=== PATIENT | female | born 2000 | race Caucasian/White ===

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

== ENCOUNTER 2022-05-19 17:26 | Observation (INO) | payer BC, MEDICAID, SELFPAY ==
[2022-05-19] VITALS (30 sets, daily range): BP systolic 81–110; BP diastolic 50–95; PULSE 66–110; RESP 8–18; TEMP 36.8; O2SAT 98–100
--- NOTE | ~2022-05-19 | CT_ITS ---
EXAMINATION: CT abdomen pelvis w con DATE: 05/19/2022 22:45 INDICATION: abdominal pain TECHNIQUE: Computed tomography (CT) of the abdomen and pelvis was performed with 100 mL Omnipaque-350 intravenous contrast. Automated exposure control and iterative reconstruction technique were employe d. The dose-length product was 207.57 mGy-cm. COMPARISON: None. FINDINGS: Lower thorax: Unremarkable Liver: Normal. Biliary/Gallbladder: Gallbladder is normal. No bile duct dilation. Pancreas: No mass or duct dilation. Mildly atrophic. Spleen: Normal. Adrenals:No mass. Kidneys: No mass, stone, or hydronephrosis. GI tract: No small or large bowel dilation. The appendix is not confidently visualized. Mesentery/Peritoneum: No ascites, mass, or free air. Retroperitoneum: No mass. Generalized mesenteric edema, slight predominance in the right lower quadra nt. Pelvis: Otherwise the pelvic organs are within normal limits. Soft Tissues: Soft tissues and body wall unremarkable. Bones: No acute osseous finding. Bilateral pars defects at L4. IMPRESSION: 1. Generalized mesenteric edema, which is considered a nonspecific finding. However, there is slightl y greater stranding in the right lower quadrant. 2. The appendix was not visualized due to the paucity of intra-abdominal fat and adjacent loops of luis m wel. Better visualization would require intraluminal contrast and sufficient delay. 3. Bilateral inguinal lymphadenopathy. Reviewed, dictated and finalized at location K. S RIBBON MACHINE OPERATOR ASSISTANT IMPRESSION: 1. Generalized mesenteric edema, which is considered a nonspecific finding. How ever, there is slightly greater stranding in the right lower quadrant. 2. The appendix was not visualized due to the paucity of intra-abdominal fat an d adjacent loops of bowel. Better visualization would require intraluminal cont rast and sufficient delay. 3. Bilateral inguinal lymphadenopathy.
--- NOTE | ~2022-05-19 | XR_ITS ---
EXAMINATION: XR chest 2V Exam Date/Time: 05/19/2022 21:50 LIFT SUPERVISOR HISTORY: overdose Comparison: None available. RESULT: Lines, tubes, and devices: None. Lungs and pleura: Clear. Cardiomediastinal silhouette: Normal. Other: No acute osseous or upper abdominal finding. IMPRESSION: No acute cardiopulmonary process. Reviewed, dictated and finalized at location K. SUPERVISOR
[2022-05-19 17:38] LABS: Glucose Point of Care 225 mg/dl (65-105)
--- NOTE | 2022-05-19 17:38 | ECG_ITS ---
Measurements Intervals [place] Rate: 102 P: 12 TN: 134 QRS: 88 QRSD: 86 T: 40 QT: 346 QTc: 451 Interpretive Statements SINUS TACHYCARDIA WITH OCCASIONAL VENTRICULAR PREMATURE COMPLEXES ABNORMAL RHYTHM ECG NO PREVIOUS ECG AVAILABLE FOR COMPARISON Electronically Signed On 05-20-2022 16:17:06 VAULT PERSON by Candelaria Chirinos M.D.
[2022-05-19 18:54] LABS: Hematocrit 33.6 % (37.0-47.0); Hemoglobin 11.1 g/dL (12.0-15.0); Mean Corpuscular Hemoglobin 27.9 pg (26-34); Mean Corpuscular Volume 84.4 fl (80-100); Mean Platelet Volume 10.8 fl (7.4-10.4); Platelet Count Result 313 k/mm3 (150-375); Red Blood Count 3.98 M/mm3 (4.2-5.4); Red Cell Distribution Width 13.8 % (11.5-14.5); White Blood Count 35.6 K/mm3 (4.5-10.0)
[2022-05-19 19:12] LABS: Hemoglobin A1C 5.3 % (<5.7)
[2022-05-19 19:19] LABS: Acetaminophen < 10 ug/mL (10-30); Ethanol < 10 mg/dL (<10); Salicylate < 1.0 mg/dL (2-20)
[2022-05-19 19:29] LABS: SARS-CoV-2 RNA PCR Negative
[2022-05-19 19:44] LABS: Band Neutrophils Percent 10 % (0-6); Eosinophils Absolute Manual 0.35 K/mm3 (0.02-0.5); Eosinophils Percent Manual 1 % (0-4); Lymphocytes Absolute Manual 1.06 K/mm3 (1.1-4.5); Monocytes Absolute Manual 1.78 K/mm3 (0.1-0.90); Monocytes Percent Manual 5 % (3-9); Neutrophils Absolute Manual 32.39 K/mm3 (1.7-7.2); Neutrophils Percent Manual 81 % (46-73); Schistocytes None Seen (NORMAL); Total Cells Counted 100
[2022-05-19 19:45] LABS: Platelet Estimate Adequate (Adequate)
[2022-05-19 20:14] LABS: Appearance Urine Slightly Cloudy (Clear); Bilirubin Urine Negative (Negative); Blood Urine 3+ (Negative); Color Urine Yellow (Yellow); Glucose Urine UA Trace mg/dL (Negative); Ketones Urine Negative (Negative); Leukocyte Esterase Ur 2+ LEU/UL (Negative); Nitrate Urine Positive (Negative); Protein Urine 1+ mg/dL (Negative); Specific Grav Ur 1.025 (1.001-1.035); Urobilinogen Urine 0.2 mg/dL (<2.0)
[2022-05-19 20:20] LABS: Add Urine Microscopic? YES; Bacteria Urine 2+ /hpf; Mucus Urine Rare /lpf; Squamous Epithelial Cell Urine Many /hpf (Few); WBC Urine 21-30 /hpf
[2022-05-19 20:26] LABS: Barbiturate Screen Urine Negative (Negative); Benzodiazepines Screen Urine Negative (Negative)
[2022-05-19 20:27] LABS: Alanine Aminotransferase 32 U/L (6-35); Alkaline Phosphatase 60 U/L (45-116); Anion Gap 5 mmol/L (8-16); Aspartate Amino Transferase 50 U/L (14-36); Bilirubin,Total 0.4 mg/dL (0.2-1.3); Blood Urea Nitrogen 17 mg/dL (8-21); Carbon Dioxide 27 mmol/L (22-30); Chloride 104 mmol/L (98-107); Estimated CRCL calculation 114 ml/min; Estimated Glomerular Filt Rate > 60; Glucose 76 mg/dL (65-110); Potassium 4.6 mmol/L (3.4-5.0); Sodium 136 mmol/L (134-143)
[2022-05-19 20:45] LABS: Cannabinoid Screen Urine Negative (Negative); Cocaine Screen Urine Negative (Negative); Methadone Screen Urine Negative (Negative); Opiate Screen Urine Negative (Negative); Phencyclidine Screen Urine Negative (Negative)
[2022-05-19 21:10] LABS: Amphetamine Screen Urine Positive (Negative)
--- NOTE | 2022-05-19 21:44 | ED.OVERDOSE ---
HPI - Overdose General Chief Complaint: Overdose Stated Complaint: Overdose Time Seen by Provider: 05/19/22 17:51 History of Present Illness HPI Narrative: Patient is a 21-year-old female who presents ER status post overdose. Patient reports accidental overdose. She received 2 mg of Narcan from paramedics and additional Narcan from EMS. She reports she usually uses methamphetamine and she may have accidentally used an opiate however she told the nurses that she used fentanyl. Patient has no complaints of being nauseous at this time. Related Data Home Medications Medication Instructions Recorded Confirmed No Home Medications 03/08/21 03/08/21 Allergies Allergy/AdvReac Type Severity Reaction Status Date / Time No Known Allergies Allergy Verified 05/19/22 17:37 Review of Systems Review of Systems: All systems reviewed & are unremarkable except as noted in HPI and below Constitutional: Constitutional: Denies chills, Reports fatigue and Denies fever(s) ENT: Denies nasal congestion and Denies sore throat Cardiovascular: Cardiovascular: Denies chest pain, Denies rapid heart rate and Denies radiating jaw, neck or arm pain Respiratory: Respiratory: Denies cough and Denies dyspnea Gastrointestinal: Gastrointestinal: Denies abdominal pain, Denies diarrhea and Reports nausea Neurologic: Denies headache(s), Denies focal weakness and Denies numbness PMFSH Past Medical History Medical History (Updated 05/19/22 @ 23:53 by Papo Kenyon MD) Healthy female adult Surgical History Surgical History (Updated 05/19/22 @ 21:45 by Papo Kenyon MD) No history of previous surgery Social History Social History (Updated 05/19/22 @ 21:46 by Papo Kenyon MD) Smoking status: Current every day smoker Tobacco type: cigarettes and e-cigarettes/vaping Alcohol intake: current Alcohol use details: sometimes Substance use: current Substance use type: marijuana, amphetamines and opiates Gender identity (if verbalized by the patient): Female Exam Narrative: GENERAL: Well-appearing, well-nourished, and in no acute distress. HEAD: Normocephalic, atraumatic. EYES: PERRL and EOMI. ENT: Mucous membranes moist. CHEST: Clear to auscultation. No respiratory distress. HEART: Regular rate and rhythm. Normal peripheral pulses. ABDOMEN: Soft, nontender, nondistended. EXTREMITIES: Normal range of motion. No edema. SKIN: Warm, dry, no rash. NEURO: Alert and oriented x3. PSYCH: Normal mood and affect. Course Course Emergency Course: Patient given small dose of Narcan here which improved respiratory rate from 9-16 and then increased blood pressure from the 80s to 90s. Patient then had all her blood pressure cuff put on and her blood pressure went up to 110/82 mmHg. Patient is keenly arousable to verbal stimuli. Admit for observation IV antibiotics. Patient could have aspiration the rhinitis seen on x-ray. Vital Signs Vital signs: Vital Signs Temperature 98.2 F 05/19/22 17:30 Pulse Rate 110 H 05/19/22 17:30 Respiratory Rate 18 05/19/22 17:30 Blood Pressure 110/95 H 05/19/22 17:30 Pulse Oximetry 100 05/19/22 17:30 Temperature 98.2 F 05/19/22 17:30 Pulse Rate 82 05/19/22 23:49 Respiratory Rate 10 L 05/19/22 23:49 Blood Pressure 110/82 05/19/22 23:49 Pulse Oximetry 100 05/19/22 23:49 MDM - Overdose Lab Data 05/19/22 18:09 05/19/22 19:58 Labs: Lab Results 05/19/22 05/19/22 05/19/22 Range/Units 17:35 18:09 18:09 WBC 35.6 H (4.5-10.0) K/mm3 RBC 3.98 L (4.2-5.4) M/mm3 Hgb 11.1 L (12.0-15.0) g/dL Hct 33.6 L (37.0-47.0) % MCV 84.4 (80-100) fl MCH 27.9 (26-34) pg MCHC 33.0 (32-36) g/dl RDW 13.8 (11.5-14.5) % Plt Count 313 (150-375) k/mm3 MPV 10.8 H (7.4-10.4) fl Immature Gran % (Auto) Not Reportable Neut % (Auto) Not Reportable Lymph % (Auto) Not Reportable
[2022-05-19 22:21] LABS: Lactic Acid Reflex 0.8 mmol/L (0.7-2.0)
[2022-05-19] MEDS: SODIUM CHLORIDE 0.9% IV 1,000 ML 999 ML IV CONT ×2 (22:46)
[2022-05-19] MEDS: NALOXONE HCL 0.4 MG/ML VIAL IV PUSH (23:35)
--- NOTE | 2022-05-19 23:39 | PM.IMHP ---
H&P: HPI History of Present Illness Date/Time: 05/19/22 23:39 Chief Complaint: Unresponsive Narrative: 21-year-old female with past medical history of cutting, depression and substance abuse who presented to the ER via EMS after she was found unresponsive at her best friend's house. The patient reports that she has frequently and routinely smoked methamphetamines since she was 18. She is estranged from her family due to these behavior. Today she evidently got some drugs that it contained fentanyl. According to ER report the patient received 2 mg of Narcan with a repeat dose of additional Narcan of unknown amount in the field. She has subsequently received reportedly 2 additional doses Narcan in the ER 0.4. Although 1 doses only documented. The patient wakes up easily and answers all questions. All lower respiratory rate does drop as low as 9 deep less on the monitor is not accurate and on exam patient was actually breathing 12-14 times a minute. She denies any shortness of breath, cough or congestion. She reports that she was at her best friend's house and was smoking meth in order to get high. Next thing she knew EMS was called. She denies any nausea or vomiting. She has irritable and repetitively has asking for food. She reports she has some lower abdominal pain which she thinks is associated with her menstrual cycle. She is actively was menses. He denies any urinary symptoms. She has been afebrile in the ER. She has not had any hypoxia. When she arrived to the ER the patient's blood pressures were borderline low. She received 2 L in fluid bolus. Her blood pressures were still soft. However the time my evaluation it was noted the patient had a regular-sized adult cuff on an with changed to a small adult cuff the patient's blood pressures were more appropriate. Review of Systems Review of Systems: 12 systems were reviewed with pertinent positives and negatives per HPI. Except as documented in the HPI, all other systems were reviewed and are negative. [facility] Past Medical History Medical History (Updated 05/20/22 @ 02:52 by Christina Troncoso DO) Deliberate self-cutting Homeless single person Methamphetamine abuse Previous known suicide attempt Surgical History Surgical History No history of previous surgery Family History Family History Other No significant family history Social History Social History (Updated 05/20/22 @ 02:37 by Christina Troncoso DO) Social History: She is single. She has homeless but occasionally stays with her boyfriend and or best friend. She smokes a pack of cigarettes a week since she was 18. She has been smoking methamphetamines since she was 18. She denies any significant alcohol use. Code status: Full code Smoking status: Current every day smoker Tobacco type: cigarettes and e-cigarettes/vaping Alcohol intake: current Alcohol use details: sometimes Substance use: current Substance use type: marijuana, amphetamines and opiates Gender identity (if verbalized by the patient): Female Meds Home Medications and Allergies Home Medications Medication Instructions Recorded Confirmed Type No Home Medications 03/08/21 03/08/21 History Allergies Allergy/AdvReac Type Severity Reaction Status Date / Time amoxicillin Allergy Mild Rash Verified 05/20/22 02:40 Vital Signs Vital Signs - 24 hr 05/19/22 17:30 05/19/22 17:35 05/19/22 18:13 Temperature 98.2 F Pulse Rate 110 H 89 Respiratory Rate 18 18 Blood Pressure 110/95 H Pulse Oximetry 100 05/19/22 17:46 05/19/22 18:48 05/19/22 19:00 Temperature Pulse Rate 87 96 96 Respiratory Rate 16 11 L 10 L Blood Pressure 105/67 Pulse Oximetry 99 05/19/22 19:01 05/19/22 19:21 05/19/22 19:30 Temperature Pulse Rate 105 H 93 94 Respiratory Rate 11 L 13 11 L Blood P
[2022-05-20] VITALS (23 sets, daily range): BP systolic 99–119; BP diastolic 52–78; PULSE 62–125; RESP 7–20; TEMP 36.4–36.8; O2SAT 97–100; BMI 23.1
--- NOTE | 2022-05-20 00:05 | PC.NURSE ---
Patient's grandmother called per patient request to report that she will be admitted. [phone]
--- NOTE | 2022-05-20 01:40 | PC.NURSE ---
patient's father Bulmaro Price [phone].
[2022-05-20] MEDS: SODIUM CHLORIDE 0.9% IV 1,000 ML 125 ML IV CONT ×3 (03:43→22:26)
[2022-05-20 05:04] LABS: Basophils Absolute Auto 0.1 K/mm3 (0.0-0.1); Basophils Percent Auto 0.6 % (0.2-1.2); Eosinophils Absolute Auto 0.3 K/mm3 (0-0.3); Hematocrit 30.3 % (37.0-47.0); Hemoglobin 9.8 g/dL (12.0-15.0); Immature Granulocyte Absolute 0.08 K/mm3 (0.00-0.031); Immature Granulocyte Percent A 0.5 % (0-0.5); Lymphocytes Absolute Auto 3.36 K/mm3 (0.9-3.2); Lymphocytes Percent Auto 22.1 % (18.3-44.2); Mean Corpuscular HGB Conc 32.3 g/dl (32-36); Mean Corpuscular Hemoglobin 27.1 pg (26-34); Mean Corpuscular Volume 83.7 fl (80-100); Mean Platelet Volume 10.1 fl (7.4-10.4); Monocytes Absolute Auto 0.6 K/mm3 (0.1-0.6); Monocytes Percent Auto 4.1 % (2.6-8.5); Neutrophils Absolute Auto 10.8 K/mm3 (1.3-6.7); Neutrophils Percent Auto 70.7 % (45.5-73.1); Platelet Count Result 250 k/mm3 (150-375); Red Blood Count 3.62 M/mm3 (4.2-5.4); Red Cell Distribution Width 13.6 % (11.5-14.5); White Blood Count 15.2 K/mm3 (4.5-10.0)
--- NOTE | 2022-05-20 05:07 | ADMGEN ---
This patient, Alina Price, was admitted to IMU Room 211-01. Patient/family oriented to hospital policies and general routines including ID bracelet, bed and alarms, visiting hours, pain management, procedures, bathroom and other care routines, personal items, smoking policy, room service/diet, and visiting hours. Information on how to activate the Rapid Response Team has been discussed. Patient/Family are encouraged to report perceived risks to care and to ask questions if they do not understand what they are told or what they should do.
[2022-05-20 05:09] LABS: Anion Gap 4 mmol/L (8-16); Blood Urea Nitrogen 15 mg/dL (8-21); Calcium 7.9 mg/dL (8.9-10.7); Carbon Dioxide 26 mmol/L (22-30); Chloride 107 mmol/L (98-107); Estimated CRCL calculation 114 ml/min; Estimated Glomerular Filt Rate > 60; Glucose 101 mg/dL (65-110); Potassium 3.7 mmol/L (3.4-5.0); Sodium 137 mmol/L (134-143)
--- NOTE | 2022-05-20 09:18 | PM.IMPN ---
Progress Note: A&P Assessment and Plan (1) Drug overdose: Qualifiers: Encounter type: initial encounter Injury intent: accidental or unintentional Qualified Code(s): T50.901A - Poisoning by unspecified drugs, medicaments and biological substances, accidental (unintentional), initial encounter Code(s): T50.901A - Poisoning by unspecified drugs, medicaments and biological substances, accidental (unintentional), initial encounter Status: Acute Assessment and Plan: Patient feeling a lot better noted to still feels a little tired received Narcan in the emergency room will continue to monitor closely. Continue IV hydration. Evaluate patient for any hypotension Q 4 hourly (2) UTI (urinary tract infection): Code(s): N39.0 - Urinary tract infection, site not specified Status: Acute Assessment and Plan: not clear if she has UTI overnight the patient had high-dose wheezing on examination, also has anemia. So unable to evaluate fully. Patient UA cultures are still pending currently on Rocephin due to bandemia (3) Anemia: Code(s): D64.9 - Anemia, unspecified Status: Acute Assessment and Plan: patient has been noted to have a hemoglobin of 9.8 today from the previous level of 11. Patient has denied any rectal bleeding does complain that she has heavy periods. Will continue monitor H&H (4) Homeless single person: Code(s): Z59.00 - Homelessness unspecified Status: Acute Assessment and Plan: patient states her family will not help her due to her drug use ascus to notify grandmother while she is in hospital. Will get social insurance specialist is on the case. Patient also advised to see a psychiatrist as an outpatient also advised long-term drug rehab program with outpatient (5) Leukocytosis: Qualifiers: Leukocytosis type: bandemia Qualified Code(s): D72.825 - Bandemia Code(s): D72.829 - Elevated white blood cell count, unspecified Status: Acute Assessment and Plan: leukocytosis could be multifactorial could be from drug overdose /UTI patient did have bandemia fluids empirical Rocephin was started counts have improved. Continue to monitor patient has no fever chills or any signs of sepsis Plan DVT prophylaxis. not needed patient is ambulating well possible discharge home tomorrow GI prophylaxis. All records reviewed Discussed plan of care with the nursing staff and with the patient in detail. Answered all questions and concerns from the patient. All labs have been reviewed. Code status updated patient is not suicidal and in no risk of harming herself appears very appropriate would like to recover from this drug overdose and go home /alf dictation may have been done utilizing a voice recognition system. Attempts have been made to correct errors. However, there may be uncorrected grammatical, spelling, and recognition errors present. Subjective Date/time seen: 05/20/22 09:18 Interval history: Patient is a 21-year-old pleasant female who was admitted with drug overdose . patient was given Narcan last night patient still lives with are affected answers questions appropriately in patient was seen with the nurse present patient denied any history of suicide ideation no chest pain or shortness of breath fevers chills up on the chair was able to go to the bathroom. Patient seen her. Do feel it will be but no dizziness Review of Systems Review of Systems: All systems reviewed & are unremarkable except as noted in HPI and below Exam Narrative: GENERAL: Well appearing, well-nourished, non-toxic, in no acute distress. HEAD: Normocephalic, atraumatic. NECK: Supple. No adenopathy, no masses. RESPIRATORY: Airway patent, respirations nonlabored. Clear to auscultation bilaterally, no rales, rhonchi, wheezing. CARDIOVASCULAR: Regular rate and rhythm without murmurs, rubs, or gallops. Peripheral pulses 2+ and equal bilaterally. AB
[2022-05-20] MEDS: ACETAMINOPHEN 325 MG TABLET 650 MG PO (10:56)
[2022-05-20] MEDS: IBUPROFEN 400 MG TABLET PO (10:57)
[2022-05-20] MEDS: NICOTINE (*PBKC) 7 MG PATCH 1 PATCH TRANSDERM (18:14)
--- NOTE | 2022-05-20 19:18 | PC.NURSE ---
Please call Amrik with addiction services at [phone] when patient is being discharged so he can help her with setting up rehab after discharge. Jennifer's Phone number [phone] [facility] Phone number [phone]
[2022-05-21] VITALS (9 sets, daily range): BP systolic 108–128; BP diastolic 59–84; PULSE 82–113; RESP 16–20; TEMP 36.3–37.2; O2SAT 97–100
[2022-05-21] MEDS: ACETAMINOPHEN 325 MG TABLET 650 MG PO (01:09)
[2022-05-21] MEDS: SODIUM CHLORIDE 0.9% IV 1,000 ML 125 ML IV CONT (06:32)
[2022-05-21] MEDS: IBUPROFEN 400 MG TABLET PO (08:06)
[2022-05-21 08:07] LABS: Hematocrit 32.5 % (37.0-47.0); Hemoglobin 10.6 g/dL (12.0-15.0); Mean Corpuscular HGB Conc 32.6 g/dl (32-36); Mean Corpuscular Hemoglobin 27.2 pg (26-34); Mean Corpuscular Volume 83.3 fl (80-100); Platelet Count Result 309 k/mm3 (150-375); Red Cell Distribution Width 13.6 % (11.5-14.5); White Blood Count 9.8 K/mm3 (4.5-10.0)
[2022-05-21] MEDS: NICOTINE (*PBKC) 7 MG PATCH 1 PATCH TRANSDERM (08:07)
[2022-05-21 08:17] LABS: Alanine Aminotransferase 22 U/L (6-35); Albumin Level 3.2 g/dL (3.7-5.6); Alkaline Phosphatase 61 U/L (45-116); Anion Gap 3 mmol/L (8-16); Aspartate Amino Transferase 22 U/L (14-36); Bilirubin,Total < 0.1 mg/dL (0.2-1.3); Blood Urea Nitrogen 9 mg/dL (8-21); Carbon Dioxide 26 mmol/L (22-30); Chloride 104 mmol/L (98-107); Estimated CRCL calculation 139 ml/min; Estimated Glomerular Filt Rate > 60; Glucose 92 mg/dL (65-110); Potassium 3.8 mmol/L (3.4-5.0); Sodium 133 mmol/L (134-143)
--- NOTE | 2022-05-21 16:08 | PM.DS ---
DS: Admitting Diagnosis Discharge Date 05/21/2022 Admitting Diagnosis Opioid Overdose DS: Discharge Diagnosis Discharge Diagnosis (1) Drug overdose: Qualifiers: Encounter type: initial encounter Injury intent: accidental or unintentional Qualified Code(s): T50.901A - Poisoning by unspecified drugs, medicaments and biological substances, accidental (unintentional), initial encounter Code(s): T50.901A - Poisoning by unspecified drugs, medicaments and biological substances, accidental (unintentional), initial encounter Status: Acute Assessment and Plan: Feels much better and is more awake and alert. BP normalized. Denies SI or HI. (2) UTI (urinary tract infection): Code(s): N39.0 - Urinary tract infection, site not specified Status: Acute Assessment and Plan: last sexual intercourse was just prior to admission. Has had some increased frequency. Urine culture grew e. coli and group b streptococcus sensitive to ceftriaxone. Will discharge to home with cefdinir to complete a total of 5 days treatment. (3) Anemia: Code(s): D64.9 - Anemia, unspecified Status: Acute Assessment and Plan: patient has been noted to have a hemoglobin of 9.8 today from the previous level of 11. Patient has denied any rectal bleeding does complain that she has heavy periods. Will continue monitor H&H. Anemia improved this morning. Patient will need outpatient workup for anemia by primary care physician. (4) Homeless single person: Code(s): Z59.00 - Homelessness unspecified Status: Acute Assessment and Plan: patient states her family will not help her due to her drug use ascus to notify grandmother while she is in hospital. Will get social work nurse is on the case. Patient also advised to see a psychiatrist as an outpatient also advised long-term drug rehab program with outpatient. At time of discharge, patient planned to go live with her boyfriend. (5) Leukocytosis: Qualifiers: Leukocytosis type: bandemia Qualified Code(s): D72.825 - Bandemia Code(s): D72.829 - Elevated white blood cell count, unspecified Status: Acute Assessment and Plan: Leukocytosis resolved with treatment of urinary tract infection. DS: Summary Hospital Course Reason for hospitalization: Opioid overdose Hospital Course: 21F with a past medical history of self-harm, depression, polysubstance abuse who presented to the emergency department after being found unresponsive by friends. Patient reported chronic methamphetamine use since the age of 18 but says she took some other drugs, which contained fentanyl. This was not intentional and the patient did not realize fentanyl was in the drugs. Patient was given narcan and monitored in the hospital. Patient was seen by a substance abuse counselor to help coordinate outpatient treatment and services for her substance abuse. Patient was also found to have a urinary tract infection, which was treated with ceftriaxone. Her blood pressure improved after bolus. At the time of discharge, patient denied suicidal or homicidal ideation. Time Spent with Patient Time attestation: Total time spent providing and/or coordinating discharge services: Exam Narrative: GENERAL: NAD, cooperative HEENT: Normocephalic, atraumatic, anicteric NECK: Supple CV: Normal S1, S2, RRR, No MRG RESP: CTAB, Normal work of breathing. Abdomen: mild suprapubic discomfort, normoactive BS, soft, no peritoneal signs EXTREMITIES: Warm and well perfused, no clubbing, cyanosis, or edema. SKIN: warm, dry and intact. NEURO:Mental Status: A&Ox 3. CN 2-12 grossly intact. DS: Data Data Completed and Pending Labs on day of discharge: Labs from last 24 hours 05/21/22 05/21/22 07:59 07:59 WBC 9.8 RBC 3.90 L Hgb 10.6 L Hct 32.5 L MCV 83.3 MCH 27.2 MCHC 32.6 RDW 13.6 Plt Count 309 MPV 10.0
== END 2022-05-21 18:01 | disposition home or self-care (01) ==
LOC: ANHED 23:56 → ANHIMU 05-20 11:01
PROVIDERS: Internal Medicine; Admitting Provider Internal Medicine; Emergency Provider Emergency Medicine; Visit Provider Family Medicine
DX: T50.901A Poisoning by unspecified drugs, medicaments and biological substances, accidental (unintentional), initial encounter (principal); N39.0 Urinary tract infection, site not specified; B96.20 Unspecified Escherichia coli [E. coli] as the cause of diseases classified elsewhere; B95.1 Streptococcus, group B, as the cause of diseases classified elsewhere; D64.9 Anemia, unspecified; D72.825 Bandemia; Z59.00 Homelessness unspecified; Z72.89 Other problems related to lifestyle; I95.9 Hypotension, unspecified; R73.9 Hyperglycemia, unspecified; R60.1 Generalized edema; R11.0 Nausea; R53.83 Other fatigue; R00.0 Tachycardia, unspecified; R59.0 Localized enlarged lymph nodes; R94.31 Abnormal electrocardiogram [ECG] [EKG]; Z20.822 Contact with and (suspected) exposure to COVID-19; F17.210 Nicotine dependence, cigarettes, uncomplicated; F10.90 Alcohol use, unspecified, uncomplicated; F15.90 Other stimulant use, unspecified, uncomplicated; F12.90 Cannabis use, unspecified, uncomplicated; F11.90 Opioid use, unspecified, uncomplicated; Y90.0 Blood alcohol level of less than 20 mg/100 ml; F32.A Depression, unspecified; Z91.51 Personal history of suicidal behavior; Z91.52 Personal history of nonsuicidal self-harm; Z87.828 Personal history of other (healed) physical injury and trauma
CPT/HCPCS: 36415; 71046; 74177; 80048; 80053; 80307; 81001; 81025; 82948; 83036; 83605; 84443; 85025; 85027; 87040; 87077; 87086; 87147; 87181; 87186; 93005; 96361; 96365; 96366; 96374; 96375; 99285; A9270; G0378; J0696; J2310; J7030; Q9967; U0003; U0005

== ENCOUNTER 2023-07-07 14:10 | Emergency (ER) | payer BC, MEDICAID, SELFPAY ==
[2023-07-07 14:13] VITALS: BP 136/102; PULSE 118; RESP 20; TEMP 36.6; O2SAT 99
--- NOTE | 2023-07-07 15:16 | ECG_ITS ---
Measurements Intervals [place] Rate: 106 P: 63 [place]: 156 QRS: 80 QRSD: 80 T: 34 QT: 351 QTc: 468 Interpretive Statements SINUS TACHYCARDIA POSSIBLE LEFT ATRIAL ENLARGEMENT NONSPECIFIC T-WAVE ABNORMALITY- ANTERIOR LEADS BORDERLINE ECG COMPARED TO ECG 05/19/2022 18:05:12 NO SIGNIFICANT CHANGES Electronically Signed On 07-07-2023 16:34:15 BARREL STRAIGHTENER by Jamey House D.O.
--- NOTE | 2023-07-07 15:26 | ED.RECABL ---
HPI - Recheck/Abnormal Lab/Rx General Chief Complaint: Recheck/Abnormal Lab/Rx Stated Complaint: fit for confinment Time Seen by Provider: 07/07/23 15:18 Source: patient, old records reviewed and police Mode of arrival: other (PD custody) Limitations: no limitations History of Present Illness HPI narrative: patient is a 22-year-old female who presents the ED via PD needing a fit for confinement agreement. patient has history of polysubstance drug abuse, including fentanyl and methamphetamines. She last smoked methamphetamine and snorted fentanyl this morning around 10:00 a.m.. She states she went to [facility] in [place] to be screened for their detox program. She then states an ambulance arrived and she was taken to [facility] where the police were notified. patient is currently under police custody. She had labs performed at [facility] but was told she did not have to be there, signed out AMA. Police attempted to take her to penitentiary, however they required a fit for confinement form to be filled out prior to intake. Patient was then brought here. Charge nurse contacted [facility] and was told her potassium was 2.7. Her labs were otherwise unremarkable. Patient denies any current complaints. Denies SI or HI. Related Data Allergies Allergy/AdvReac Type Severity Reaction Status Date / Time amoxicillin Allergy Mild Rash Verified 07/07/23 15:56 Review of Systems Review of Systems: CONSTITUTIONAL: Denies fever, chills, or sweats. CARDIOVASCULAR: Denies chest pain. RESPIRATORY: Denies dyspnea. GASTROINTESTINAL: Denies abdominal pain, nausea, vomiting. NEUROLOGIC: Denies headache, dizziness, numbness, or weakness. PSYCHIATRIC: See HPI All systems reviewed & are unremarkable except as noted in HPI and below PMFSH Past Medical History Medical History Deliberate self-cutting Homeless single person Methamphetamine abuse Previous known suicide attempt Surgical History Surgical History No history of previous surgery Family History Family History Other No significant family history Social History Social History Social History: She is single. She has homeless but occasionally stays with her boyfriend and or best friend. She smokes a pack of cigarettes a week since she was 18. She has been smoking methamphetamines since she was 18. She denies any significant alcohol use. Code status: Full code Smoking status: Light tobacco smoker Tobacco type: cigarettes Alcohol intake: never Alcohol use details: sometimes Substance use: current Substance use type: methamphetamine Lack of Transportation: YES Lack of Food: Often True Current Housing: I Do Not Have Housing Concerned About Future Housing: YES Difficulty Paying Gas/Electric Bills: YES Difficulty Paying for Meds: YES Currently Unemployed: YES Education: High School Diploma/GED Difficulty w/ Childcare or Family Care: No Living arrangements: with family Occupation/Education: student Gender identity (if verbalized by the patient): Female Spiritual care concerns: No Exam Narrative: GENERAL: Well-nourished, non-toxic, in no acute distress. HEAD: Normocephalic, atraumatic. RESPIRATORY: Airway patent, respirations nonlabored. CARDIOVASCULAR: Tachycardic with regular rhythm without murmurs, rubs, or gallops. MUSCULOSKELETAL: Moves all extremities. No gross deformities. SKIN: Warm, dry, normal color. NEURO: A&O X3. Speech clear. PSYCHIATRIC: Flat affect. Normal interaction. Course Vital Signs Vital signs: Vital Signs Temperature 97.8 F 07/07/23 14:13 Pulse Rate 118 H 07/07/23 14:13 Respiratory Rate 20 07/07/23 14:13 Blood Pre
[2023-07-07 15:30] LABS: Basophils Percent Auto 0.4 % (0.2-1.2); Eosinophils Absolute Auto 0.1 K/mm3 (0-0.3); Eosinophils Percent Auto 1.5 % (0-4.4); Hematocrit 38.3 % (37.0-47.0); Hemoglobin 12.6 g/dL (12.0-15.0); Immature Granulocyte Absolute 0.02 K/mm3 (0.00-0.031); Immature Granulocyte Percent A 0.2 % (0-0.5); Lymphocytes Absolute Auto 2.11 K/mm3 (0.9-3.2); Lymphocytes Percent Auto 26.2 % (18.3-44.2); Mean Corpuscular HGB Conc 32.9 g/dl (32-36); Mean Corpuscular Hemoglobin 26.7 pg (26-34); Mean Corpuscular Volume 81.1 fl (80-100); Mean Platelet Volume 11.3 fl (7.4-10.4); Monocytes Absolute Auto 0.6 K/mm3 (0.1-0.6); Monocytes Percent Auto 7.3 % (2.6-8.5); Neutrophils Absolute Auto 5.2 K/mm3 (1.3-6.7); Neutrophils Percent Auto 64.4 % (45.5-73.1); Platelet Count Result 315 k/mm3 (150-375); Red Blood Count 4.72 M/mm3 (4.2-5.4); Red Cell Distribution Width 11.9 % (11.5-14.5)
[2023-07-07 15:45] LABS: Alanine Aminotransferase 12 U/L (6-35); Albumin Level 4.3 g/dL (3.5-5.1); Alkaline Phosphatase 55 U/L (38-126); Anion Gap 10 mmol/L (8-16); Aspartate Amino Transferase 25 U/L (14-36); Bilirubin,Total 0.5 mg/dL (0.2-1.3); Blood Urea Nitrogen 12 mg/dL (7-17); Calcium 9.7 mg/dL (8.4-10.2); Carbon Dioxide 29 mmol/L (22-30); Chloride 98 mmol/L (98-107); Estimated CRCL calculation 96 ml/min; Estimated Glomerular Filt Rate > 60; Glucose 108 mg/dL (65-110); Magnesium 2.1 mg/dL (1.6-2.3); Potassium 4.2 mmol/L (3.4-5.0); Sodium 137 mmol/L (137-145)
[2023-07-07 15:56] VITALS: BP 118/80; PULSE 116; RESP 20; TEMP 36.4; O2SAT 100
== END 2023-07-07 16:00 ==
LOC: ANHED 16:07
PROVIDERS: Emergency Provider Physician Assistant
DX: F11.10 Opioid abuse, uncomplicated (principal); F15.10 Other stimulant abuse, uncomplicated; R79.89 Other specified abnormal findings of blood chemistry; F17.210 Nicotine dependence, cigarettes, uncomplicated
CPT/HCPCS: 36415; 80053; 83735; 85025; 93005; 99283